=== PATIENT | male | born 1960 | race Caucasian/White ===

== ENCOUNTER 2019-08-26 08:53 | Day surgery (SDC) | payer OTHER ==
[~2019-08-26 08:53] MED LIST: PROPOFOL INJ 200 MG/20 ML VIAL IV ONE
[2019-08-26 11:47] VITALS: BP 120/70
--- NOTE | 2019-08-26 12:54 | Operative Report ---
Operative Report DATE OF SURGERY: 08/26/19 Operative Report: The risk, benefits and alternatives of the procedure including the risk of bleeding were explained to the patient in detail and informed consent was obtained. Timeout was called. Propofol medication is provided. Rectal examination is done. No masses tears or fissures noted. Colonoscope was inserted into the patient's rectum. This carefully guided all the way to the cecum. Good prep. All segments visualized. Retroflexion maneuvers performed. PREOPERATIVE DIAGNOSIS: Colorectal cancer screening, personal history of polyps POSTOPERATIVE DIAGNOSIS: Diverticulosis on the left side of the colon associated with some inflammation status post biopsy. Internal hemorrhoids OPERATION: Colonoscopy with biopsy SURGEON: CLEMENCIA SIGALA ANESTHESIA: LMAC TISSUE REMOVED OR ALTERED: As noted above. COMPLICATIONS: None. ESTIMATED BLOOD LOSS: None. INTRAOPERATIVE FINDINGS: As noted above. PROCEDURE: Patient tolerated the procedure well. No immediate postprocedure complications are noted. Patient is discharged in good condition. Discharge date 08/26/2019. Discharge diet: Regular. Discharge activity: Regular. 2 to 3-week follow-up to discuss findings. 5-year surveillance colonoscopy.
== END 2019-08-26 11:50 | disposition home or self-care (01) ==
LOC: END 08:53
PROVIDERS: ATTEND Internal Medicine Gastroenterology
DX: Z12.11 Encounter for screening for malignant neoplasm of colon (principal); K57.30 Diverticulosis of large intestine without perforation or abscess without bleeding; K64.8 Other hemorrhoids; K52.9 Noninfective gastroenteritis and colitis, unspecified; Z86.010 Personal history of colon polyps; Z79.899 Other long term (current) drug therapy; Z79.82 Long term (current) use of aspirin; Z79.84 Long term (current) use of oral hypoglycemic drugs; Z88.8 Allergy status to other drugs, medicaments and biological substances; F17.210 Nicotine dependence, cigarettes, uncomplicated; I25.2 Old myocardial infarction
CPT/HCPCS: 45380; 82962; 88305 ×2; 00812; J2704; 812